=== PATIENT | male | born 1940 | race Caucasian/White ===

== ENCOUNTER 2023-02-16 13:00 | Outpatient (CLI) | payer MEDICARE | END 2023-02-16 23:59 | disposition home or self-care (01) | LOC: CARD DIAG 13:00 | PROVIDERS: ATTEND Family Medicine | DX: I08.8 Other rheumatic multiple valve diseases (principal); R01.1 Cardiac murmur, unspecified | CPT/HCPCS: 93306 ==

== ENCOUNTER 2024-02-22 09:23 | Emergency (ER) | payer MEDICARE ==
[~2024-02-22] VITALS: Ht 182.9 cm; Wt 100.4 kg
[2024-02-22 11:00] LABS: BASOPHILS % (AUTO) 0.6 % (0-1); EOSINOPHILS % (AUTO) 0.8 % (0-6); HEMATOCRIT 43.5 % (42.0-52.0); HEMOGLOBIN 14.6 g/dl (14.0-17.9); LYMPHOCYTES # (AUTO) 2.2 X10'3 (1.1-4.8); LYMPHOCYTES % (AUTO) 36.1 % (21-51); MEAN CORPUSCULAR HEMOGLOBIN 31.7 PG (27.0-31.0); MEAN CORPUSCULAR HGB CONC 33.6 g/dL (33.0-36.5); MEAN CORPUSCULAR VOLUME 94.4 FL (78-98); MEAN PLATELET VOLUME 8.1 FL (7.4-10.4); MONOCYTES # (AUTO) 0.6 X10'3 (0-0.9); MONOCYTES % (AUTO) 9.5 % (2-12); NEUTROPHILS # (AUTO) 3.3 X10'3 (1.8-7.7); PLATELET COUNT 106 X10'3 (140-440); RED BLOOD COUNT 4.61 X10'6 (4.70-6.10); RED CELL DISTRIBUTION WIDTH 13.2 % (11.5-14.5); WHITE BLOOD COUNT 6.2 X10'3 (4.5-11.0)
[2024-02-22 11:07] LABS: INR 1.1 INR
[2024-02-22] MEDS ORDERED: METH4TAB81 PO (14:01)
[2024-02-22] MEDS ORDERED: HYDR-3965 PO (14:01)
[2024-02-22 14:19] VITALS: BP 160/92; PULSE 62; RESP 14; TEMP 98.6; O2SAT 92
[2024-02-22 19:06] LABS: BILIRUBIN,TOTAL 0.86 MG/DL (0.1-1.0); CALCIUM 9.7 MG/DL (8.5-10.1); CREATININE 1.02 MG/DL (0.8-1.3); POTASSIUM 4.2 MMOL/L (3.3-5.1)
[2024-02-22 19:07] LABS: ALBUMIN 4.4 G/DL (3.4-5.0); TOTAL PROTEIN 7.7 G/DL (6.4-8.2)
== END 2024-02-22 14:21 | disposition home or self-care (01) ==
LOC: ER 09:24
DX: M79.662 Pain in left lower leg (principal); M54.50 Low back pain, unspecified; Z79.899 Other long term (current) drug therapy; Z98.890 Other specified postprocedural states
CPT/HCPCS: 36415; 72100; 73590; 85025; 85379; 85610; 93925; 93970; 99285

== ENCOUNTER 2024-07-16 09:39 | Outpatient (CLI) | payer MEDICARE ==
[~2024-07-16 09:39] MED LIST: METH4TAB81 PO
== END 2024-07-16 23:59 | disposition home or self-care (01) ==
LOC: CARD DIAG 09:39
PROVIDERS: ATTEND Nurse Practitioner Family
DX: I08.0 Rheumatic disorders of both mitral and aortic valves (principal); R01.1 Cardiac murmur, unspecified
CPT/HCPCS: 93306

== ENCOUNTER 2024-08-14 08:27 | Outpatient (CLI) | payer MEDICARE | END 2024-08-14 23:59 | disposition home or self-care (01) | LOC: US 08:27 | PROVIDERS: ATTEND Nurse Practitioner Family | DX: R19.00 Intra-abdominal and pelvic swelling, mass and lump, unspecified site (principal) | CPT/HCPCS: 76705 ==

== ENCOUNTER 2025-03-19 08:39 | Outpatient (CLI) | payer MEDICARE ==
[2025-03-19 09:16] LABS: MEAN PLATELET VOLUME 7.8 FL (7.4-10.4); RED CELL DISTRIBUTION WIDTH 13.3 % (11.5-14.5)
[2025-03-19 09:24] LABS: CREATININE 1.19 MG/DL (0.60-1.10); TOTAL CARBON DIOXIDE 29.4 MMOL/L (24-32); eGFR 58 ML/MIN
== END 2025-03-19 23:59 | disposition home or self-care (01) ==
LOC: RAD 08:39
PROVIDERS: ATTEND Nurse Practitioner Family
DX: D69.6 Thrombocytopenia, unspecified (principal); E87.1 Hypo-osmolality and hyponatremia
CPT/HCPCS: 36415; 80053; 85025

== ENCOUNTER 2025-03-26 09:18 | Outpatient (CLI) | payer MEDICARE ==
--- NOTE | 2025-03-26 15:05 | RADIOLOGY REPORT ---
CLINICAL HISTORY: MICROSCOPIC HEMATURIA TECHNIQUE: Complete ultrasound exam of the kidneys and bladder was performed. COMPARISON: US ULTRASOUND OF ABDOMEN on DOS: 08/14/24 FINDINGS: The right kidney has normal echogenicity and measures 11.1 X 5.5 X 6.3 cm. There are cyst measuring u p to 3.1 cm. Sts. There is a 7 mm stone versus calcification. There is no hydronephrosis. The left kidney has normal echogenicity and measures 12.4 X 6.9 X 4.6 cm. There is a 4.9 cm cyst wit h no hymal abnormality or evidence for stone. There is no hydronephrosis. The bladder demonstrates a 13 mm posterior the echogenic linear structure, likely stone. The prevoid bladder volume is 287 ml and opposite bladder volume is 244 ml. IMPRESSION: 7 mm right renal stone versus vascular calcification. 13mm echogenic intraluminal bladder lesion, favors stone.
== END 2025-03-26 23:59 | disposition home or self-care (01) ==
LOC: RAD 09:18
PROVIDERS: ATTEND Nurse Practitioner Family
DX: R31.29 Other microscopic hematuria (principal)
CPT/HCPCS: 76770